=== PATIENT | female | born 1995 | race Hispanic/Latino ===

== ENCOUNTER 2021-08-27 17:55 | Inpatient (IN) | payer OTHER ==
[2021-08-27 18:16] VITALS: BMI 46.5
[2021-08-27] MEDS ORDERED: Misoprostol 200 MCG TAB PR PRN (19:05)
[2021-08-27] MEDS ORDERED: Lidocaine 1% (PF) 30 ML VIAL SC PRN (19:05)
[2021-08-27] MEDS ORDERED: Promethazine HCl 25 MG/ML VIAL IM PRN (19:05)
[2021-08-27] MEDS ORDERED: hydrALAZINE 20 MG/ML VIAL SLOW IVP PRN (19:05)
[2021-08-27] MEDS ORDERED: Diphenoxylate HCl/Atropine Tablet PO PRN ×2 (19:05)
[2021-08-27] MEDS ORDERED: Ondansetron PF 4 MG/2 ML Vial IVP PRN (19:05)
[2021-08-27] MEDS ORDERED: Carboprost 250 MCG/ML AMP IM PRN (19:05)
[2021-08-27] MEDS ORDERED: HYDROcodone/Acetaminophen 5/325 mg Tablet PO PRN ×2 (19:05)
[2021-08-27] MEDS ORDERED: NS w/ Oxytocin 30 units 500 ML IV SCH ×2 (19:05)
[2021-08-27] MEDS ORDERED: Ibuprofen 800 MG TAB PO PRN (19:05)
[2021-08-27] MEDS ORDERED: Fentanyl 100 MCG/2 ML VIAL SLOW IVP PRN (19:05)
[2021-08-27] MEDS ORDERED: Acetaminophen 500 MG TAB PO PRN (19:05)
[2021-08-27] MEDS ORDERED: Labetalol HCl 100 MG/20 ML VIAL SLOW IVP PRN (19:05)
[2021-08-27 20:13] LABS: Hemoglobin 13.3 g/dL (12.0-15.5); Mean Corpuscular Hemoglobin 33.6 pg (27.0-33.0); Platelet Count 187 10x3/uL (150-450); RBC Distribution Width 13.8 % (11.5-14.5); Red Blood Cell (RBC) Count 3.96 10x6/uL (3.90-5.03); White Blood Cell (WBC) Count 9.3 10x3/uL (3.5-10.5)
[2021-08-27 20:21] LABS: ALT (SGPT) 11 U/L (8-55); AST (SGOT) 17 U/L (5-34); Albumin 3.4 g/dL (3.5-5.0); Alkaline Phosphatase 74 U/L (40-110); Anion Gap 12 mmol/L (10-20); BUN (Urea Nitrogen) 11 mg/dL (7.0-18.7); Bilirubin, Total 0.3 mg/dL (0.2-1.2); Calc. Creatinine Clearance 278 mL/min (70-130); Calcium 9.6 mg/dL (7.8-10.44); Carbon Dioxide 22 mmol/L (22-29); Chloride 106 mmol/L (98-107); Globulin 3.7 g/dL (2.4-3.5); Glucose 74 mg/dL (70-105); Protein, Total 7.1 g/dL (6.0-8.3); Sodium 136 mmol/L (136-145)
[2021-08-27 20:40] LABS: Hep B Surf Ag Non-Reactive S/CO (NonReactive)
[2021-08-27 20:41] LABS: Syphilis Antibody Nonreactive (Nonreactive); Syphilis Antibody Index 0.05 S/CO (<1.00 Non-Reactive)
[2021-08-27 20:44] LABS: HBSAg Index 0.17 S/CO (0-0.99)
[2021-08-27] MEDS: Misoprostol 100 MCG TAB VAG SCH (21:04)
[2021-08-28] MEDS: Misoprostol 100 MCG TAB VAG SCH (00:45)
[2021-08-28] MEDS: Lactated Ringer's 1,000 ML IV SCH ×2 (08:30→12:08)
[2021-08-28] MEDS ORDERED: Butorphanol Tartrate 1 MG/ML VIAL SLOW IVP PRN (09:04)
[2021-08-28] MEDS ORDERED: Fentanyl 2 mcg/Bup 0.1% Cadd 100 ML ONE (11:42)
[2021-08-28] MEDS ORDERED: Hydrocerin (Eucerin) Cream 120 gm Jar TOP PRN ×2 (12:58→21:25)
[2021-08-28] MEDS ORDERED: Naloxone HCl 0.4 mg/ml Vial IVP PRN ×4 (12:58→21:25)
[2021-08-28] MEDS ORDERED: ePHEDrine Sulfate 50 MG/10 ML VIAL SLOW IVP PRN (12:58)
[2021-08-28] MEDS ORDERED: Promethazine HCl 25 MG/ML VIAL IM PRN ×2 (12:58→21:25)
[2021-08-28] MEDS ORDERED: Ondansetron PF 4 MG/2 ML Vial IVP PRN ×2 (12:58→21:25)
[2021-08-28] MEDS ORDERED: Lactated Ringer's 500 ML IV PRN (12:58)
[2021-08-28] MEDS ORDERED: diphenhydrAMINE 50 MG/ML VIAL IVP PRN ×2 (12:58→21:25)
[2021-08-28] MEDS ORDERED: Fentanyl 2 mcg/Bupivacaine 0.1% Cassette 100 ML EPIDURAL SCH (13:00)
[2021-08-28] MEDS ORDERED: Communication Order-Pharmacy FS SCH ×2 (13:00→21:30)
[2021-08-28] MEDS ORDERED: Lanolin Ointment 7 GM TUBE TOP PRN (20:54)
[2021-08-28] MEDS ORDERED: HYDROcodone/Acetaminophen 5/325 mg Tablet PO PRN (20:54)
[2021-08-28] MEDS ORDERED: Boostrix 0.5 ML (Tdap) VIAL IM ONE (20:54)
[2021-08-28] MEDS ORDERED: hydrALAZINE 20 MG/ML VIAL SLOW IVP PRN (20:54)
[2021-08-28] MEDS ORDERED: Bisacodyl 10 MG SUPP PR PRN (20:54)
[2021-08-28] MEDS ORDERED: Morphine PF 10 MG/10 ML VIAL ONE (20:55)
[2021-08-28] MEDS ORDERED: Lidocaine 2% MPF 10 ML AMP (For Epidural Use) ONE (20:55)
[2021-08-28] MEDS ORDERED: ceFAZolin 2 GM/Dextrose 50 ML IVPB ONE (20:57)
[2021-08-28] MEDS ORDERED: Azithromycin 500 MG VIAL ONE (20:57)
[2021-08-28] MEDS ORDERED: Bicitra 30 ML UDCUP PO PRN (20:59)
[2021-08-28] MEDS ORDERED: Famotidine/PF 20 mg/2ml Vial SLOW IVP PRN (20:59)
[2021-08-28] MEDS ORDERED: Azithromycin 500 MG in Sodium Chloride 0.9% 250 ML 250 ML IVPB SCH (21:00)
[2021-08-28] MEDS ORDERED: ceFAZolin 2 GM/Dextrose 50 ML 2 GM in Premix Bag 1 BAG IVPB SCH (21:00)
[2021-08-28] MEDS ORDERED: Oxytocin 10 UNITS/ML VIAL ONE (21:01)
[2021-08-28] MEDS ORDERED: PHENYLEPHRINE-NS 100 MCG/ML 10 ML SYRINGE ONE (21:01)
[2021-08-28] MEDS ORDERED: Ondansetron PF 4 MG/2 ML Vial ONE (21:01)
[2021-08-28] MEDS ORDERED: Dexamethasone 4 mg/ml Vial ONE (21:01)
[2021-08-28] MEDS ORDERED: Promethazine HCl 25 MG SUPP PR PRN (21:25)
[2021-08-28] MEDS ORDERED: Ketorolac Tromethamine 30 MG/ML VIAL IVP PRN (21:25)
[2021-08-28] MEDS ORDERED: Naloxone HCl 0.4 mg/ml Vial IV PRN (21:25)
[2021-08-28] MEDS ORDERED: L&D-Morphine 4 MG/ML VIAL SLOW IVP PRN (21:26)
[2021-08-28] MEDS ORDERED: Fentanyl 100 MCG/2 ML VIAL SLOW IVP PRN (21:26)
[2021-08-28] MEDS ORDERED: Meperidine HCl/PF 25 MG/ML VIAL SLOW IVP PRN (21:26)
[2021-08-28] MEDS ORDERED: Ondansetron HCl/PF 4 MG/2 ML Vial IVP PRN (21:26)
[2021-08-28] MEDS ORDERED: Ketorolac Tromethamine 30 MG/ML VIAL IVP SCH (21:30)
[2021-08-28] MEDS ORDERED: Ibuprofen 800 MG TAB PO SCH (22:00)
[2021-08-29 05:34] LABS: Mean Corpuscular Hemoglobin 33.7 pg (27.0-33.0); Mean Corpuscular Volume 96.3 fl (81.6-98.3); Mean Platelet Volume 10.8 fl (7.4-10.4); Platelet Count 143 10x3/uL (150-450); RBC Distribution Width 13.7 % (11.5-14.5); Red Blood Cell (RBC) Count 3.56 10x6/uL (3.90-5.03); White Blood Cell (WBC) Count 18.7 10x3/uL (3.5-10.5)
[2021-08-29] MEDS: Misoprostol 100 MCG TAB VAG SCH ×3 (07:18→07:20)
[2021-08-29] MEDS: Lactated Ringer's 1,000 ML IV SCH (07:20)
[2021-08-29] MEDS: Docusate 100 MG CAP PO SCH ×3 (07:21→22:06)
[2021-08-29] MEDS: Prenatal Vitamin 1 TAB PO SCH (08:39)
[2021-08-29] MEDS: HYDROcodone/Acetaminophen 5/325 mg Tablet PO PRN ×4 (09:45→22:07)
[2021-08-29] MEDS: Acetaminophen 325 MG TAB PO PRN ×2 (14:35→18:19)
[2021-08-29] MEDS: Ibuprofen 800 MG TAB PO PRN (22:07)
[2021-08-29] MEDS: Simethicone Chewable 80 MG TAB PO PRN (22:07)
[2021-08-30] MEDS: Ibuprofen 800 MG TAB PO PRN (05:31)
[2021-08-30] MEDS: HYDROcodone/Acetaminophen 5/325 mg Tablet PO PRN ×3 (05:32→20:57)
[2021-08-30] MEDS: Simethicone Chewable 80 MG TAB PO PRN (05:32)
[2021-08-30] MEDS: Prenatal Vitamin 1 TAB PO SCH (08:34)
[2021-08-30] MEDS: Docusate 100 MG CAP PO SCH ×2 (08:34→20:57)
[2021-08-30] MEDS: diphenhydrAMINE 25 MG CAP PO PRN (12:56)
[2021-08-30] MEDS: Ibuprofen 800 MG TAB PO SCH ×2 (14:08→22:18)
[2021-08-31] MEDS: Ibuprofen 800 MG TAB PO SCH ×3 (05:56→21:29)
[2021-08-31] MEDS: HYDROcodone/Acetaminophen 5/325 mg Tablet PO PRN ×3 (07:09→19:49)
[2021-08-31] MEDS: Prenatal Vitamin 1 TAB PO SCH (08:54)
[2021-08-31] MEDS: Docusate 100 MG CAP PO SCH ×2 (08:54→19:49)
[2021-08-31] MEDS: Simethicone Chewable 80 MG TAB PO PRN ×2 (08:55→13:35)
[2021-08-31] MEDS: diphenhydrAMINE 25 MG CAP PO PRN ×2 (09:05→19:49)
[2021-09-01] MEDS: Ibuprofen 800 MG TAB PO SCH ×2 (05:28→13:14)
[2021-09-01] MEDS: Docusate 100 MG CAP PO SCH (08:29)
[2021-09-01] MEDS: Prenatal Vitamin 1 TAB PO SCH (08:29)
[2021-09-01] MEDS ORDERED: NIFEdipine XL 30 MG TAB PO SCH (09:00)
[2021-09-01 11:08] VITALS: BP 150/77; TEMP 98.8
[2021-09-01] MEDS: HYDROcodone/Acetaminophen 5/325 mg Tablet PO PRN (16:20)
== END 2021-09-01 16:45 | disposition home or self-care (01) | DRG 788 ==
LOC: CSHLD 17:55 → CSHPP 08-29 02:50
PROVIDERS: ADMIT Obstetrics & Gynecology; ATTEND Obstetrics & Gynecology
PROC: 10D00Z1 Extraction of Products of Conception, Low, Open Approach (ICD-10-PCS; principal; 2021-08-28)
PROC: 10907ZC Drainage of Amniotic Fluid, Therapeutic from Products of Conception, Via Natural or Artificial Opening (ICD-10-PCS; 2021-08-28)
PROC: 3E0P7VZ Introduction of Hormone into Female Reproductive, Via Natural or Artificial Opening (ICD-10-PCS; 2021-08-28)
PROC: 3E033VJ Introduction of Other Hormone into Peripheral Vein, Percutaneous Approach (ICD-10-PCS; 2021-08-28)
DX: O14.04 Mild to moderate pre-eclampsia, complicating childbirth (principal); Z3A.37 37 weeks gestation of pregnancy; Z37.0 Single live birth; E66.9 Obesity, unspecified; O99.214 Obesity complicating childbirth; O32.4XX0 Maternal care for high head at term, not applicable or unspecified; O33.3XX0 Maternal care for disproportion due to outlet contraction of pelvis, not applicable or unspecified
CPT/HCPCS: 36415; 51702; 80053; 85027; 86780; 86850; 86900; 86901; 87340; J0595; J1100; J1885; J2274; J2405; J2590; J7120